=== PATIENT | female | born 1990 | race Caucasian/White ===

== ENCOUNTER 2023-03-21 16:27 | Inpatient (IN) | payer OTHER ==
[~2023-03-21] VITALS: Ht 167.6 cm; Wt 88.2 kg
[2023-03-22] MEDS ORDERED: EUTHYROX25 MCG PO (09:55)
[2023-03-22] MEDS ORDERED: PRENATAL TABLET PO (09:56)
[2023-03-22] MEDS ORDERED: VITAMIN B-625 MG (09:57)
[2023-03-25] VITALS (17 sets, daily range): BP systolic 121–149; BP diastolic 75–96; PULSE 62–110; TEMP 98.3–98.6
--- NOTE | 2023-03-25 06:00 | NUR ---
0530 - Patient ambulatory to room 209 accompanied by spouse. Patient presents to unit for scheduled c/s for breech presentation.
--- NOTE | 2023-03-25 09:10 | NUR ---
0910 - Patient transported from PACU to Nursery by bed. Patient resting comfortably. Skin to skin with baby. Spouse accompanies patient. Care ongoing.
--- NOTE | 2023-03-25 16:00 | NUR ---
1600 - Patient up to bathroom with RN assist. Cole d/c. Hongare performed. New gown and clean mesh underwear on. Binder remains on. Patient ambulates back to bed. Patient resting comfortably. Care ongoing.
[2023-03-25 16:47] LABS: BASO # 0.1 K/mm3 (0.0-0.2); BASO % 0.5 % (0.0-2.0); EOS # 0.1 K/mm3 (0.0-0.7); EOS % 1.1 % (0.0-4.0); GRAN % 73.1 % (42.2-75.2); HEMOGLOBIN 12.4 g/dl (12.5-16.0); LYMPH # 1.9 K/mm3 (1.2-3.4); LYMPH % 17.4 % (20.0-51.0); MEAN CELL VOLUME 86 fl (80.0-100.0); MEAN CORPUSCULAR HEMOGLOBIN 30 pg (27-31); MEAN CORPUSCULAR HGB CONC 34 g/dl (33.0-37.0); MEAN PLATELET VOLUME 11.2 fl (7.4-10.4); MONO # 0.7 K/mm3 (0.1-0.6); MONO % 6.7 % (1.7-9.3); PLATELET COUNT 256 K/mm3 (130-400); RED BLOOD COUNT 4.19 M/mm3 (4.10-5.30); REDCELL DISTRIBUTION WIDTH-CV 12.7 % (11.5-14.5)
[2023-03-25 16:48] LABS: HEMATOCRIT 36.2 % (37.0-47.0)
[2023-03-26 00:50] VITALS: BP 128/72; PULSE 79; TEMP 98
[2023-03-26 04:40] VITALS: BP 148/89; PULSE 84; TEMP 98.1
[2023-03-26 08:00] VITALS: BP 121/84; PULSE 85; TEMP 98
--- NOTE | 2023-03-26 13:11 | NUR ---
Initial visit; Patient thanked Customer Advocacy Manager for offering congratulations and God's blessings for the of her daughter. Customer Advocacy Manager thanked mom for choosing our hospital. Hal stated she has had a really good experience here.
--- NOTE | 2023-03-26 15:18 | NUR ---
1500 THIS COMMERCIAL LEASING AGENT ASSUMES CARE OF PATIENT FROM UMBERTO LINN RN.
[2023-03-26 16:00] VITALS: BP 130/93; PULSE 87; TEMP 98
[2023-03-26 19:30] VITALS: BP 127/82; PULSE 87; TEMP 98.1
[2023-03-27 07:55] VITALS: BP 131/86; PULSE 78; TEMP 97.8
--- NOTE | 2023-03-27 14:24 | NUR ---
DISCHARGE EDUCATION COMPLETED, HEALTH HISTORY GIVEN, AND FOLLOW UP APPOINTMENTS DISCUSSED. QUESTIONS INVITED AND ANSWERED.
== END 2023-03-27 14:40 | disposition home or self-care (01) | DRG 788 ==
LOC: OB 03-25 05:43
PROVIDERS: ADMIT Obstetrics & Gynecology
PROC: 10D00Z1 Extraction of Products of Conception, Low, Open Approach (ICD-10-PCS; principal; 2023-03-25)
DX: O32.1XX0 Maternal care for breech presentation, not applicable or unspecified (principal); Z37.0 Single live birth; O48.0 Post-term pregnancy; O99.283 Endocrine, nutritional and metabolic diseases complicating pregnancy, third trimester; E03.9 Hypothyroidism, unspecified; O99.343 Other mental disorders complicating pregnancy, third trimester; F41.9 Anxiety disorder, unspecified; F32.A Depression, unspecified; Z3A.40 40 weeks gestation of pregnancy; Z79.890 Hormone replacement therapy; Z88.0 Allergy status to penicillin
CPT/HCPCS: J0690; J1100; J1885; J2405; J2590; J2765; J7120

== ENCOUNTER 2023-03-22 09:43 | Outpatient (CLI) | payer OTHER ==
[~2023-03-22] VITALS: Ht 167.6 cm; Wt 88.2 kg
--- NOTE | 2023-03-22 09:45 | NUR ---
PT AMBULATORY TO LR3 WITH SPOUSE. CHANGED INTO CLEAN GOWN. FHR MONITOR/TOCO APPLIED. PT DENIES VAGINAL BLEEDING, DECREASED MOVEMENT, OR REGULAR CONTRACTIONS. PT CAME IN COMPLAINING OF INCREASE WETNESS. VITAL SIGNS STABLE. AFEBRILE. A HARDACRE RN SVE CLOSED/THICK/HIGH. AMNIOTRACE NEGATIVE.
[2023-03-22] MEDS ORDERED: EUTHYROX25 MCG PO (09:55)
[2023-03-22] MEDS ORDERED: PRENATAL TABLET PO (09:56)
[2023-03-22] MEDS ORDERED: VITAMIN B-625 MG (09:57)
--- NOTE | 2023-03-22 10:12 | NUR ---
DR PAULINO GIVEN REPORT ON PATIENT. DR PAULINO GIVES VERBAL ORDERS TO BE DISCHARGED HOME AFTER REACTIVE NST.
--- NOTE | 2023-03-22 10:20 | NUR ---
DR PAULINO REVIEWING FHR STRIP. GIVES VERBAL ORDERS FOR PT TO DISCHARGE.
[2023-03-22 10:23] VITALS: BP 138/94; PULSE 93; TEMP 97.5
== END 2023-03-22 10:30 | disposition home or self-care (01) ==
LOC: LDRO 09:43
DX: Z34.93 Encounter for supervision of normal pregnancy, unspecified, third trimester (principal); Z3A.40 40 weeks gestation of pregnancy